=== PATIENT | female | born 1940 | race Caucasian/White ===

== ENCOUNTER → 2017-06-20 | Outpatient (CLI) | payer MEDICARE, OTHER ==
[~2017-06-20] MED LIST: BAYER CHEWABLE81 MG PO; CALCIUM PLUS D; K-DUR20 ME1 PO; LASIX PO; LOSARTAN POTAS100 MG PO; METAMUCIL197.2 GM PO; PRESERVISION1 EA PO; TOPROL XL50 MG PO; VIT A; VIT B12 PO; VIT C PO; VIT E PO; VITAL-D RX TABL1 TAB PO; [UNRECOGNIZED DRUG - OTHER]
--- NOTE | ~2017-06-20 | US83 ---
[facility] A Service of [facility] & [facility] RADIOLOGY TEXT RESULTS PATIENT: RODRÍGUEZ SIEGEL LOCATION: CNIV : 38 UNIT #: [id number] AGE: [address]: Javi Thorpe MD SEX: F ORDER DR: [id number] [facility] [address] [place], [place] [address] [id number] O MR#: [id number] Acc #: [id number] NAME: RODRÍGUEZ SIEGEL : 1940 SEX: F STUDY DATE/TIME: 06/20/2017 10:56 UNIT: CNIV ROOM: STUDY DESCRIPTION: US LE [employer] Attending Physician: Javi Thorpe M.D. Referring Physician: Javi Thorpe M.D. Ordering Physician: Javi Thorpe M.D. Primary Care Physician: Joselyn Howard M.D. MEDICAL IMAGING REPORT This report is preliminary unless electronic signature is present EXAM Left lower extremity arterial graft surveillance ultrasound, 06/20/2017. HISTORY Peripheral arterial disease. FINDINGS The left common femoral artery appears patent with a velocity of 195 cm/sec. The profunda femoris artery is widely patent, with a velocity of 61 cm/sec. Superficial femoral artery from proximal to distal is patent with a proximal thigh velocity of 202 cm/sec, mid thigh 148 cm/sec, and distally 168 cm/sec. There is a bypass graft that appears to originate from the distal superficial femoral artery and proximal popliteal artery. The arterial anastomosis is not well-visualized. Suspected flow in the bypass graft proximally is 144 cm/sec, at the knee 75 cm/sec, and below the knee 73 cm/sec. Outflow into the posterior tibial artery appears patent with a velocity of 79 cm/sec, peroneal artery 88 cm/sec, and anterior tibial artery 71 cm/sec. IMPRESSION Widely patent visualized left lower extremity vasculature with a bypass graft likely originating from the superficial femoral artery and terminating within the lower leg. Proximal and distal anastomoses were not well-visualized. Good outflow is noted within the tibial vessels. Dictated by... Quinton Navarro M.D. THIS IS AN ELECTRONICALLY VERIFIED REPORT Quinton Navarro M.D. at 06/22/2017 7:33 AM ABDULLAHIN/angelito [facility]. [facility] A Service of [facility] RADIOLOGY TEXT RESULTS PATIENT: RODRÍGUEZ SIEGEL LOCATION: [facility] : 38 UNIT #: [id number] AGE: [address]: Javi Thorpe MD SEX: F ORDER DR: TD: 06/20/2017 17:05 JOB #: [id number] MEDICAL IMAGING REPORT Page 1 of 1 COPY
--- NOTE | ~2017-06-20 | US136 ---
[facility] A Service of [facility] & [facility] RADIOLOGY TEXT RESULTS PATIENT: RODRÍGUEZ SIEGEL LOCATION: CNIV : 38 UNIT #: [id number] AGE: [address]: Javi Thorpe MD SEX: F ORDER DR: [id number] [facility] [address] [place], [place] [address] [id number] O MR#: [id number] Acc #: [id number] NAME: RODRÍGUEZ SIEGEL : 1940 SEX: F STUDY DATE/TIME: 06/20/2017 10:21 UNIT: CNIV ROOM: STUDY DESCRIPTION: U/L Ext [employer] Attending Physician: Javi Thorpe M.D. Referring Physician: Javi Thorpe M.D. Ordering Physician: Javi Thorpe M.D. Primary Care Physician: Joselyn Howard M.D. MEDICAL IMAGING REPORT This report is preliminary unless electronic signature is present EXAM Bilateral lower extremity ROSS date of exam 06/20/2017 HISTORY Peripheral arterial disease. FINDINGS The right brachial pressure is 180 and left is 189. The right dorsalis pedis pressure is 141 and posterior tibial 138 for an ROSS of 0.75 and a first toe pressure of 89 mmHg. Left dorsalis pedis pressure is 143 and posterior tibial 137 for an ROSS of 0.76 and a first toe pressure of 82 mmHg. PVR waveform at the ankle level appear to be intact and slightly diminished at the right ankle as compared to the left ankle. Digital waveforms show a diminished right first toe waveform as compared to the more normal appearing left first toe waveform. Arterial waveforms of the dorsalis pedis and posterior tibial arteries demonstrated biphasic waveforms bilateral at both arteries. IMPRESSION 1. Moderate arterial insufficiency of the right lower extremity with adequate absolute pressure of the first toe. 2. Moderate arterial insufficiency of the left lower extremity with adequate absolute pressure of the left first toe. Dictated by... Quinton Navarro M.D. THIS IS AN ELECTRONICALLY VERIFIED REPORT Quinton Navarro M.D. at 06/22/2017 7:33 AM [facility] A Service of [facility] & [facility] RADIOLOGY TEXT RESULTS PATIENT: RODRÍGUEZ SIEGEL LOCATION: CN[facility] : 38 UNIT #: [id number] AGE: [address]: Javi Thorpe MD SEX: F ORDER DR: SARIKA/heavenly TD: 06/20/2017 16:43 JOB #: [id number] MEDICAL IMAGING REPORT Page 1 of 1 COPY
== END | disposition home or self-care (01) ==
LOC: CNIV 10:10
DX: I73.9 Peripheral vascular disease, unspecified (principal); I77.1 Stricture of artery
CPT/HCPCS: 93922; 93926